=== PATIENT | male | born 1965 | race Caucasian/White ===

== ENCOUNTER 2017-02-06 15:38 | Emergency (ER) | payer OTHER ==
[~2017-02-06] VITALS: Ht 193 cm; Wt 124.0 kg
[~2017-02-06 15:38] MED LIST: LISI-357 PO; OMEP20TA39 PO; PERC5TAB12 PO; THIA100T PO
[2017-02-06 15:52] VITALS: BP 155/85; PULSE 77; RESP 17; TEMP 97.9; O2SAT 97
[2017-02-06] MEDS ORDERED: DICL25 PO (16:13)
[2017-02-06] MEDS ORDERED: OMEP20TA PO (16:13)
[2017-02-06] MEDS ORDERED: diphenhydrAMINE HCL 50 MG/ML VIAL IVP ONE (16:15)
[2017-02-06] MEDS ORDERED: PROCHLORPERAZINE INJ 10 MG/2 ML VIAL IVP ONE (16:15)
[2017-02-06] MEDS ORDERED: ACETAMINOPHEN 325 MG TAB PO ONE (16:15)
[2017-02-06 16:37] LABS: AUTOMATED NEUTROPHIL # 5.4 TH/MM3 (1.8-7.7); BASOPHIL # 0.1 TH/MM3 (0-0.2); BASOPHIL % 1.3 % (0.0-2.0); EOSINOPHIL # 0.3 TH/MM3 (0-0.4); EOSINOPHIL % 3.7 % (0.0-4.0); HEMATOCRIT 38.8 % (39.0-51.0); HEMO FLAGS DIFF FINAL; LYMPH % 29.4 % (9.0-44.0); LYMPHOCYTE # 2.7 TH/MM3 (1.0-4.8); MEAN CELL VOLUME 84.6 FL (80.0-100.0); MEAN CORPUSCULAR HEMOGLOBIN 28.2 PG (27.0-34.0); MEAN CORPUSCULAR HGB CONC 33.3 % (32.0-36.0); NEUT % 58.6 % (16.0-70.0); PLATELET COUNT 240 TH/MM3 (150-450); RED BLOOD COUNT 4.59 MIL/MM3 (4.50-5.90); RED CELL DISTRIBUTION WIDTH 13.7 % (11.6-17.2); WHITE BLOOD COUNT 9.1 TH/MM3 (4.0-11.0)
[2017-02-06 16:51] LABS: BICARBONATE 24.4 MEQ/L (21.0-32.0)
--- NOTE | 2017-02-06 17:31 | PD ---
HPI Chief Complaint: Skin Problem Time Seen by Provider: 16:09 Travel History International Travel<30 days: No Contact w/Intl Traveler<30days: No Traveled to known affect area: No History of Present Illness HPI 51 yo male complains of L > R lower extremity swelling. Minimal erythema on LLE along distal half of vazquez. + TTP. No fever. No shortness of breath. No hx DVT. Timing constant. Duration about 4 days. Approx 1 week prior pt suffered superficial laceration along the upper third of left vazquez. PFSH Past Medical History Asthma: No Blood Disorders: No Anxiety: No Depression: No Heart Rhythm Problems: No Cancer: No Cardiovascular Problems: Yes High Cholesterol: No Chemotherapy: No Chest Pain: No Congestive Heart Failure: No COPD: No Diabetes: No Diminished Hearing: No Endocrine: No Gastrointestinal Disorders: Yes (ESOPHAGEAL TEAR) Genitourinary: No Hypertension: No Immune Disorder: No Implanted Vascular Access Dvce: Yes Musculoskeletal: Yes (lower back pain , 2006 pt had neck pain treatment with injections ) Neurologic: Yes (lower back pain) Psychiatric: No Respiratory: No Immunizations Current: Yes Radiation Therapy: No Sleep Apnea: No Past Surgical History Appendectomy: Yes Body Medical Devices: left knee Joint Replacement: Yes (LEFT KNEE PARTIAL) Other Surgery: Yes (appendix, left knee, ) Social History Alcohol Use: Yes (OCCASIONALLY, reportedly once a week.) Tobacco Use: Yes (1/2 PPD) Substance Use: No Allergies-Medications (Allergen,Severity, Reaction): Coded Allergies: celecoxib (Unverified Allergy, Severe, PALPITATIONS, 02/06/17) shellfish derived (Unverified Allergy, Severe, Anaphylaxis, 02/06/17) hydromorphone (Unverified Adverse Reaction, Intermediate, VIOLENT VOMITING , 02/06/17) Reported Meds & Prescriptions Reported Meds & Active Scripts Active Reported Diclofenac Sodium DR (Diclofenac Sodium) 25 Mg Tabdr 25 Mg PO BID Omeprazole 20 Mg Tab 20 Mg PO DAILY Review of Systems Except as stated in HPI: all other systems reviewed are Neg General / Constitutional: No: Fever Physical Exam Narrative GENERAL: 51 yo male, NAD, WNWD SKIN: Warm and dry. HEAD: Atraumatic. Normocephalic. EYES: Pupils equal and round. No scleral icterus. No injection or drainage. ENT: No nasal bleeding or discharge. Mucous membranes pink and moist. NECK: Trachea midline. No JVD. CARDIOVASCULAR: Regular rate and rhythm. RESPIRATORY: No accessory muscle use. Clear to auscultation. Breath sounds equal bilaterally. GASTROINTESTINAL: Abdomen soft, non-tender, nondistended. Hepatic and splenic margins not palpable. MUSCULOSKELETAL: Minimal erythema LLE overlying vazquez. 2+ edema LLE distal to knee. 1+ RLE along ankle. NEUROLOGICAL: Awake and alert. No obvious cranial nerve deficits. Motor grossly within normal limits. Five out of 5 muscle strength in the arms and legs. Normal speech. PSYCHIATRIC: Appropriate mood and affect; insight and judgment normal. Data Data Last Documented VS Vital Signs Date Time Temp Pulse Resp B/P (MAP) Pulse Ox O2 Delivery O2 Flow Rate FiO2 02/06/17 15:52 97.9 77 17 155/85 (108) 97 Orders Orders Basic Metabolic Panel (Bmp) (02/06/17 16:15) Complete Blood Count With Diff (02/06/17 16:15) Iv Access Insert/Monitor (02/06/17 16:15) Acetaminophen (Tylenol) (02/06/17 16:15) Prochlorperazine Inj (Compazine Inj) (02/06/17 16:15) Diphenhydramine Inj (Benadryl Inj) (02/06/17 16:15) Us Leg Venous Doppler Bilat (02/06/17 ) Labs Laboratory Tests Test 02/06/17 16:28 White Blood Count 9.1 TH/MM3 Red Blood Count 4.59 MIL/MM3 Hemoglobin 12.9 GM/DL Hematocrit 38.8 % Mean Corpuscular Volume 84.6 FL Mean Corpuscular Hemoglobin 28.2 PG Mean Corpuscular Hemoglobin Concent 33.3 % Red Cell Distribution Width 13.7 % Platelet Count 240 TH/MM3 Mean Platelet Volume 8.4 FL Neutrophils (%) (Auto) 58.6 % Lymphocytes (%) (Auto) 29.4 % Monocytes (%) (Auto) 7.0 % Eosinophils (%) (Auto) 3.7 % Basophils (%) (Auto) 1.3 % Neutrophils # (Auto) 5.4 TH/MM3 Lymphocytes # (Auto) 2.7 TH/MM3 Monocytes # (Auto) 0.6 TH/MM3 Eosinophils # (Auto) 0.3 TH/MM3 Basophils # (Auto) 0.1 TH/MM3 CBC Comment DIFF FINAL Differential Comment Blood Urea Nitrogen 21 MG/DL Creatinine 0.83 MG/DL Random Glucose 100 MG/DL Calcium Level 8.3 MG/DL Sodium Level 137 MEQ/L Potassium Level 4.0 MEQ/L Chloride Level 105 MEQ/L Carbon Dioxide Level 24.4 MEQ/L Anion Gap 8 MEQ/L Estimat Glomerular Filtration Rate 97 ML/MIN MDM Medical Decision Making Medical Screen Exam Complete: Yes Emergency Medical Condition: Yes Medical Record Reviewed: Yes Differential Diagnosis DVT, cellulitis, renal failure, anemia, sepsis Narrative Course CBC & BMP Diagram 02/06/17 16:28 Calcium Level 8.3 L LE Duplex: No DVT The patient is resting comfortably and feels better, is alert and in no distress. The patients results and examination findings were discussed. The repeat examination is unremarkable and benign. The history, exam, diagnostic testing, and current condition do not suggest any significant pathology to warrant further testing, continued ED treatment, admission, or surgical evaluation at this point. The vital signs have been stable. The patient does not have uncontrollable pain, intractable vomiting, or other significant symptoms. The patient's condition is stable and appropriate for discharge. The patient will pursue further outpatient evaluation with a primary care physician or other designated or consulting physician as indicated in the discharge instructions. The patient expressed understanding and was agreeable with this plan. Diagnosis Primary Impression: Cellulitis Qualified Codes: L03.116 - Cellulitis of left lower limb Referrals: Primary Care Physician 2 days Additional Instructions: You have a choice when it comes to health care, and we are glad that you chose [facility]. Hopefully, we have met your expectations on today's visit. You are welcome to return to [facility] at any time, as we are committed to meeting the health care needs of our community. Med/Other Pt SpecificInfo: Prescription(s) given Scripts Sulfamethoxazole-Trimethoprim (Bactrim DS) 800-160 Mg Tab 1 TAB PO BID for Infection, #14 TAB 0 Refills Prov: Brian Christopher MD 02/06/17 Disposition: 01 DISCHARGE HOME Condition: Stable Brian Christopher MD Feb 06, 2017 17:31
--- NOTE | 2017-02-06 17:43 | RADRPT ---
EXAM DATE/TIME: 02/06/2017 17:02 [facility] COMPARISON: No previous studies available for comparison. INDICATIONS : Bilateral leg swelling. MEDICAL HISTORY : Esophageal tear. Lower back pain. SURGICAL HISTORY : Appendectomy. Partial left knee replacement. ENCOUNTER: Initial ACUITY: 4 - 6 days PAIN SCORE: 5/10 LOCATION: Bilateral legs. TECHNIQUE: Venous ultrasound of the left and right leg was performed from the inguinal ligament to the proximal calf. Real-time, color Doppler and spectral tracing, compression and augmentation techniques were us ed. FINDINGS: RIGHT LEG: There is normal compressibility of the deep venous system from the inguinal region to the proximal ca lf. No echogenic clot is seen in the lumen of the common femoral, femoral, popliteal, and posterior tibial veins. There is a normal response of the venous system to proximal and distal augmentation an d respiration. LEFT LEG: There is normal compressibility of the deep venous system from the inguinal region to the proximal ca lf. No echogenic clot is seen in the lumen of the common femoral, femoral, popliteal, and posterior tibial veins. There is a normal response of the venous system to proximal and distal augmentation an d respiration. CONCLUSION: Normal examination. Byron Courtney MD on February 06, 2017 at 17:34 Board Certified Radiologist. This report was verified electronically.
[2017-02-06] MEDS ORDERED: BACT800T5 PO (17:48)
[2017-02-06] MEDS ORDERED: SULFAMETHOXAZOLE-TRIMETHOPRIM DS 800-160 MG TAB PO ONE (18:00)
== END 2017-02-06 18:02 | disposition home or self-care (01) ==
LOC: PHED 15:38
DX: L03.116 Cellulitis of left lower limb (principal); F17.200 Nicotine dependence, unspecified, uncomplicated
CPT/HCPCS: 80048; 85025; 93970; 96374; 96375; 99285; J0780; J1200

== ENCOUNTER 2017-05-20 21:09 | Emergency (ER) | payer OTHER ==
[~2017-05-20] VITALS: Ht 190.5 cm; Wt 118.2 kg
[~2017-05-20 21:09] MED LIST changes: +BACT800T5 PO; +DICL25 PO; -LISI-357 PO; -OMEP20TA39 PO; +OMEP20TA93 PO; -PERC5TAB12 PO; -THIA100T PO
[2017-05-20 21:12] VITALS: BP 107/66; PULSE 73; RESP 16; TEMP 98.1; O2SAT 99
[2017-05-20] MEDS ORDERED: METOCLOPRAMIDE HCL 10 MG/2 ML VIAL IV PUSH ONE (21:15)
[2017-05-20] MEDS ORDERED: diphenhydrAMINE HCL 50 MG/ML VIAL IV PUSH ONE (21:15)
[2017-05-20] MEDS ORDERED: SODIUM CHLORIDE 0.9% FLUSH 10 ML FLUSH IVF PRN (21:15)
[2017-05-20 21:18] VITALS: BP 107/66; PULSE 88; RESP 16; O2SAT 99
[2017-05-20 21:28] LABS: AUTOMATED NEUTROPHIL # 4.3 TH/MM3 (1.8-7.7); BASOPHIL # 0.1 TH/MM3 (0-0.2); BASOPHIL % 1.4 % (0.0-2.0); EOSINOPHIL # 0.3 TH/MM3 (0-0.4); HEMATOCRIT 38.2 % (39.0-51.0); LYMPH % 43.8 % (9.0-44.0); LYMPHOCYTE # 4.2 TH/MM3 (1.0-4.8); MEAN CELL VOLUME 85.7 FL (80.0-100.0); MEAN CORPUSCULAR HEMOGLOBIN 29.1 PG (27.0-34.0); MEAN CORPUSCULAR HGB CONC 33.9 % (32.0-36.0); MONO % 7.6 % (0.0-8.0); MONOCYTE # 0.7 TH/MM3 (0-0.9); NEUT % 44.2 % (16.0-70.0); PLATELET COUNT 255 TH/MM3 (150-450); RED BLOOD COUNT 4.45 MIL/MM3 (4.50-5.90); RED CELL DISTRIBUTION WIDTH 13.4 % (11.6-17.2); WHITE BLOOD COUNT 9.6 TH/MM3 (4.0-11.0)
[2017-05-20] MEDS ORDERED: methylPREDNISolone SOD SUCC 125 MG/2 ML VIAL IV PUSH ONE (21:30)
[2017-05-20 21:43] LABS: ALBUMIN 3.5 GM/DL (3.4-5.0); AST (GOT) 14 U/L (15-37); BICARBONATE 22.9 MEQ/L (21.0-32.0); BLOOD UREA NITROGEN 13 MG/DL (7-18); CALCIUM 7.9 MG/DL (8.5-10.1); CHLORIDE 102 MEQ/L (98-107); CREATININE 1.02 MG/DL (0.60-1.30); GLOMERULAR FILTRATION RATE 76 ML/MIN (>89); GLUCOSE,RANDOM 106 MG/DL (74-106); MAGNESIUM 2.2 MG/DL (1.5-2.5); SODIUM (NA) 137 MEQ/L (136-145)
[2017-05-20 21:44] LABS: ALT (GPT) 27 U/L (12-78)
[2017-05-20 21:47] LABS: PROTHROMBIN TIME - PATIENT 10.4 SEC (9.8-11.6)
[2017-05-20 21:48] LABS: ALKALINE PHOSPHATASE 77 U/L (45-117); D-DIMER 0.47 MG/L FEU (0.00-0.50); TOTAL BILIRUBIN ADULT 0.2 MG/DL (0.2-1.0); TOTAL PROTEIN 6.9 GM/DL (6.4-8.2); TROPONIN I LESS THAN 0.02 NG/ML (0.02-0.05)
--- NOTE | 2017-05-20 21:52 | RADRPT ---
EXAM DATE/TIME: 05/20/2017 21:16 [facility] COMPARISON: CHEST SINGLE AP, November 30, 2015, 23:13. INDICATIONS : Chest pain. MEDICAL HISTORY : None. SURGICAL HISTORY : Appendectomy. Partial left knee replacement. ENCOUNTER: Initial ACUITY: 1 day PAIN SCORE: 2/10 LOCATION: Bilateral chest inferior FINDINGS: A single view of the chest demonstrates the lungs to be symmetrically aerated without evidence of mas s, infiltrate or effusion. The cardiomediastinal contours are unremarkable. Osseous structures are intact. CONCLUSION: No acute disease. No significant change has occurred. Simeon Ocampo MD on May 20, 2017 at 21:49 Board Certified Radiologist. This report was verified electronically.
[2017-05-21] MEDS ORDERED: LIDOCAINE VISCOUS 2% SOLN 15 ML UDC SWISH-SWAL ONE (01:00)
[2017-05-21] MEDS ORDERED: diphenhydrAMINE HCL 50 MG/ML VIAL IV PUSH ONE (01:00)
[2017-05-21] MEDS ORDERED: ALUMINUM/MAGNESIUM/SIMETH 30 ML CUP PO ONE (01:00)
[2017-05-21] MEDS ORDERED: MEDR4PAK PO (01:16)
[2017-05-21] MEDS ORDERED: CARA1SUS3 PO (01:16)
[2017-05-21] MEDS ORDERED: FAMO1TAB37 PO (01:16)
--- NOTE | 2017-05-21 01:17 | PD ---
HPI . 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 Pain was severe, patient began feeling lightheaded, as per bystanders and significant other patient became pale and severely lightheaded and almost lost consciousness. There are several paramedics at the scene at the restaurant eating, and attended to the patient. I presentation via EMS, patient no longer lightheadedness awake and alert, complaining of episodic substernal chest discomfort that is mild. As per paramedics on transport patient had slightly lower blood pressure at presentation which normalized throughout transport. Patient had 12-lead EKG performed which showed normal sinus rhythm with no ischemic changes. [facility] Past Medical History Narrative Medical Past medical and past surgical history reviewed Asthma: No Blood Disorders: No Anxiety: No Depression: No Heart Rhythm Problems: No Cancer: No Cardiovascular Problems: Yes High Cholesterol: No Chemotherapy: No Chest Pain: No Congestive Heart Failure: No COPD: No Diabetes: No Diminished Hearing: No Endocrine: No Gastrointestinal Disorders: Yes (ESOPHAGEAL TEAR) GERD: Yes Genitourinary: No Hypertension: No Immune Disorder: No Implanted Vascular Access Dvce: Yes Musculoskeletal: Yes (lower back pain , 2007 pt had neck pain treatment with injections ) Neurologic: Yes (lower back pain) Psychiatric: No Respiratory: No Immunizations Current: Yes Radiation Therapy: No Sleep Apnea: No Past Surgical History Appendectomy: Yes Body Medical Devices: left knee Joint Replacement: Yes (LEFT KNEE PARTIAL) Other Surgery: Yes (appendix, left knee, ) Social History Alcohol Use: Yes (OCCASIONALLY, reportedly once a week.) Tobacco Use: No (1/2 PPD) Substance Use: No Allergies-Medications (Allergen,Severity, Reaction): Coded Allergies: celecoxib (Verified Allergy, Severe, PALPITATIONS, 05/20/17) shellfish derived (Verified Allergy, Severe, Anaphylaxis, 05/20/17) hydromorphone (Verified Adverse Reaction, Intermediate, VIOLENT VOMITING, 05/20/17) Reported Meds & Prescriptions Reported Meds & Active Scripts Active Reported Diclofenac Sodium DR (Diclofenac Sodium) 25 Mg Tabdr 25 Mg PO BID Omeprazole 20 Mg Tab 20 Mg PO DAILY Narrative Medication Allergies medications reviewed Review of Systems Except as stated in HPI: all other systems reviewed are Neg General / Constitutional: No: Fever Eyes: No: Visual changes HENT: Positive: Lightheadedness, No: Headaches Cardiovascular: Positive: Chest Pain or Discomfort, Diaphoresis, Syncope, No: Palpitations, Irregular Rhythm, Tachycardia, Dyspnea on exertion, Edema, Cyanosis, Varicosities Respiratory: Positive: Pleuritic Pain, No: Shortness of Breath, Orthopnea, Hemoptysis, Stridor, Night Sweats Gastrointestinal: Positive: Nausea, Abdominal Pain, No: Vomiting, Diarrhea Genitourinary: No: Dysuria Musculoskeletal: No: Pain Skin: No Rash Neurologic: No: Weakness Psychiatric: No: Depression Endocrine: No: Polydipsia Hematologic/Lymphatic: No: Easy Bruising Physical Exam Narrative GENERAL: Awake and alert, oriented 3, uncomfortable but in no acute distress SKIN: Warm and dry. Color slightly pale but improving, no diaphoresis or cyanosis HEAD: Atraumatic. Normocephalic. EYES: Pupils equal and round. No scleral icterus. No injection or drainage. ENT: No nasal bleeding or discharge. Mucous membranes pink and moist. NECK: Trachea midline. No JVD. Supple full range of motion no stridor voice normal. CARDIOVASCULAR: Regular rate and rhythm. S1-S2 no murmurs or gallops RESPIRATORY: No accessory muscle use. Clear to auscultation. Breath sounds equal bilaterally. GASTROINTESTINAL: Abdomen soft, non-tender, nondistended. Hepatic and splenic margins not palpable. MUSCULOSKELETAL: Extremities without clubbing, cyanosis, or edema. No obvious deformities. NEUROLOGICAL: Awake and alert. No obvious cranial nerve deficits. Motor grossly within normal limits. Five out of 5 muscle strength in the arms and legs. Normal speech. PSYCHIATRIC: Appropriate mood and affect; insight and judgment normal. Data Data Last Documented VS Vital Signs Date Time Temp Pulse Resp B/P (MAP) Pulse Ox O2 Delivery O2 Flow Rate FiO2 05/20/17 21:18 88 16 107/66 (80) 99 Nasal Cannula 2.00 05/20/17 21:12 98.1 Orders Orders Electrocardiogram (05/20/17 21:12) B-Type Natriuretic Peptide (05/20/17 21:12) Ckmb (Isoenzyme) Profile (05/20/17 21:12) Complete Blood Count With Diff (05/20/17 21:12) Comprehensive Metabolic Panel (05/20/17 21:12) D-Dimer (05/20/17 21:12) Magnesium (Mg) (05/20/17 21:12) Prothrombin Time / Inr (Pt) (05/20/17 21:12) Act Partial Throm Time (Ptt) (05/20/17 21:12) Troponin I (05/20/17 21:12) Chest, Single Ap (05/20/17 21:12) Ecg Monitoring (05/20/17 21:12) Bilateral Bp Monitoring (05/20/17 21:12) Iv Access Insert/Monitor (05/20/17 21:12) Oximetry (05/20/17 21:12) Oxygen Administration (05/20/17 21:12) Sodium Chloride 0.9% Flush (Ns Flush) (05/20/17 21:15) Metoclopramide Inj (Reglan Inj) (05/20/17 21:15) Diphenhydramine Inj (Benadryl Inj) (05/20/17 21:15) Influenzae A/B Antigen (05/20/17 21:22) Methylprednisolone So Succ Inj (Solumedr (05/20/17 21:30) CKMB (05/20/17 21:15) CKMB% (05/20/17 21:15) Troponin I (05/20/17 23:57) Electrocardiogram (05/21/17 ) Al-Mag Hy-Si 40-40-4 Mg/Ml Liq (Mag-Al P (05/21/17 01:00) Lidocaine 2% Viscous (Xylocaine 2% Visco (05/21/17 01:00) Diphenhydramine Inj (Benadryl Inj) (05/21/17 01:00) Labs Laboratory Tests Test 05/20/17 21:15 05/20/17 23:59 White Blood Count 9.6 TH/MM3 Red Blood Count 4.45 MIL/MM3 Hemoglobin 13.0 GM/DL Hematocrit 38.2 % Mean Corpuscular Volume 85.7 FL Mean Corpuscular Hemoglobin 29.1 PG Mean Corpuscular Hemoglobin Concent 33.9 % Red Cell Distribution Width 13.4 % Platelet Count 255 TH/MM3 Mean Platelet Volume 8.0 FL Neutrophils (%) (Auto) 44.2 % Lymphocytes (%) (Auto) 43.8 % Monocytes (%) (Auto) 7.6 % Eosinophils (%) (Auto) 3.0 % Basophils (%) (Auto) 1.4 % Neutrophils # (Auto) 4.3 TH/MM3 Lymphocytes # (Auto) 4.2 TH/MM3 Monocytes # (Auto) 0.7 TH/MM3 Eosinophils # (Auto) 0.3 TH/MM3 Basophils # (Auto) 0.1 TH/MM3 CBC Comment DIFF FINAL Differential Comment Prothrombin Time 10.4 SEC Prothromb Time International Ratio 1.0 RATIO Activated Partial Thromboplast Time 22.1 SEC D-Dimer Quantitative (PE/DVT) 0.47 MG/L FEU Blood Urea Nitrogen 13 MG/DL Creatinine 1.02 MG/DL Random Glucose 106 MG/DL Total Protein 6.9 GM/DL Albumin 3.5 GM/DL Calcium Level 7.9 MG/DL Magnesium Level 2.2 MG/DL Alkaline Phosphatase 77 U/L Aspartate Amino Transf (AST/SGOT) 14 U/L Alanine Aminotransferase (ALT/SGPT) 27 U/L Total Bilirubin 0.2 MG/DL Sodium Level 137 MEQ/L Potassium Level 3.2 MEQ/L Chloride Level 102 MEQ/L Carbon Dioxide Level 22.9 MEQ/L Anion Gap 12 MEQ/L Estimat Glomerular Filtration Rate 76 ML/MIN Total Creatine Kinase 225 U/L Creatine Kinase MB 2.8 NG/ML Troponin I LESS THAN 0.02 NG/ML LESS THAN 0.02 NG/ML B-Type Natriuretic Peptide 9 PG/ML [facility] Medical Decision Making Medical Screen Exam Complete: Yes Emergency Medical Condition: Yes Medical Record Reviewed: Yes Differential Diagnosis Chest pain, allergic reaction, reflux esophagitis, esophageal spasm, vasovagal syncope, pulmonary embolus Narrative Course EKG normal sinus rhythm at 94 bpm nonischemic, intervals normal. Laboratory examinations reviewed, cardiac enzymes normal, d-dimer negative. Patient steadily improved with Benadryl and SoluMedrol. Observed on ekg monitor tech triage, troponin repeated negative. Patient had return of symptoms at approximately 3 hours observation time which time he was given Maalox/lidocaine viscus orally with relief of symptoms. Diagnosis Primary Impression: GERD (gastroesophageal reflux disease) Qualified Codes: K21.0 - Gastro-esophageal reflux disease with esophagitis Additional Impression: Allergic reaction Qualified Codes: T78.40XA - Allergy, unspecified, initial encounter Patient Instructions: Allergic Esophagitis (ED), General Instructions Additional Instructions: Benadryl 25 mg every 8 hours as needed for allergic reaction. Medrol Dosepak as prescribed. Pepcid 20 mg twice daily. Carafate liquid 2 teaspoons 4 times daily for 10 days. Follow-up with your doctor. Return promptly for worsening Scripts Famotidine (Pepcid) 20 Mg Tab 20 MG PO BID, #60 TAB 0 Refills Prov: Israel Tran MD 05/21/17 Sucralfate Liq (Carafate Liq) 1 Gm/10 Ml Susp 1 GM PO QID for Duodenal ulcer, #1200 ML 0 Refills on empty stomach Prov: Israel Tran MD 05/21/17 Methylprednisolone Dosepak (Medrol Dosepak) 4 Mg Dspk 4 MG PO DIRECTED, #1 DSPK 0 Refills Per Pharmacist direction Prov: Israel Tran MD 05/21/17 Disposition: DISCHARGE HOME Condition: Stable Israel Tran MD May 21, 2017 01:16
--- NOTE | 2017-05-21 13:58 | EKG ---
Date Performed: 05/20/2017 Time Performed: 21:12:33 PTAGE: 51 years EKG: Sinus rhythm Within normal limits PREVIOUS TRACING 11/30/15 Compared to prior tracing no significant change DOCTOR: Pillo Solis Interpretating Date/Time 05/21/2017 13:57:15
--- NOTE | 2017-05-21 13:58 | EKG ---
Date Performed: 05/21/2017 Time Performed: 00:50:56 PTAGE: 51 years EKG: Sinus rhythm NORMAL ECG PREVIOUS TRACING : 11/30/2015 22.48 Compared to prior tracing no significant change DOCTOR: Pillo Solis Interpretating Date/Time 05/21/2017 13:57:33
== END 2017-05-21 01:48 | disposition home or self-care (01) ==
LOC: NEPE 21:09
DX: K21.0 Gastro-esophageal reflux disease with esophagitis (principal); T78.1XXA Other adverse food reactions, not elsewhere classified, initial encounter; R07.89 Other chest pain; R42 Dizziness and giddiness; F17.200 Nicotine dependence, unspecified, uncomplicated; Z88.5 Allergy status to narcotic agent; Z88.8 Allergy status to other drugs, medicaments and biological substances; Z79.899 Other long term (current) drug therapy
CPT/HCPCS: 71045; 80053; 82550; 82552; 83735; 83880; 84484; 85025; 85379; 85610; 85730; 87804; 93005; 96374; 96375; 96376; 99285; J1200; J2765; J2930